=== PATIENT | female | born 1985 | race Caucasian/White ===

== ENCOUNTER 2016-11-26 17:27 | Emergency (ER) | payer OTHER, SELFPAY ==
--- NOTE | 2016-11-26 17:53 | EDM.PDOC ---
ED HPI GENERAL MEDICAL PROBLEM - General Chief Complaint: ENT Problem Stated Complaint: [facility] Time Seen by Provider: 11/26/16 17:33 Source of Information: Reports: Patient, EMS, Provider (Dr. Bradford) History Limitations: Reports: No Limitations - History of Present Illness INITIAL COMMENTS - FREE TEXT/NARRATIVE: 30-year-old female presents for evaluation and treatment of swelling to the right interface. Patient was at the dentist having a dental abscess drained. It is unclear at this point exactly what has occurred. patient developed significant pain and swelling to the right side of her face and into the neck. Patient is very anxious upon arrival to the ER. She is denying any pain. She is tearful. She denies any nausea, vomiting or any difficulty breathing. She is unsure how long she's had a dental abscess for. Reports on the right lower molar is involved. Dr. Wilcox has presented to the ED. Dr. Bradford reports that she was draining the abscess and it was drained, she was using some air into the area to ensure that it was evacuated. She believes that the air then traveled up into her face and down into her neck causing the significant pain. She spoke with an oral facial surgeon. He recommended Augmentin twice a day for 10 days. Recommend that the air will take about 3-5 days to subside. Location: Reports: Face (right sided) - Related Data Allergies Allergy/AdvReac Type Severity Reaction Status Date / Time No Known Allergies Allergy Verified 11/26/16 17:36 Home Meds: Home Meds Acetaminophen/HYDROcodone [[place] 325-5 MG] 1 tab PO Q6H PRN #12 tablet 11/26/16 [Rx] Amoxicillin/Potassium Clav [Augmentin 875-125 Tablet] 1 each PO BID #19 tablet 11/26/16 [Rx] Social & Family History - Tobacco Use Smoking Status *Q: Current Every Day Smoker Years of Tobacco use: 5 Packs/Tins Daily: 0.5 - Caffeine Use Caffeine Use: Reports: None - Recreational Drug Use Recreational Drug Use: No ED ROS ENT - Review of Systems Review Of Systems: See Below HEENT: Reports: Other (dental abscess, right lower molar; right sided facial swelling) Respiratory: Denies: Shortness of Breath GI/Abdominal: Denies: Nausea, Vomiting ED EXAM, ENT - Physical Exam Exam: See Below Exam Limited By: No Limitations General Appearance: Anxious Eye Exam: Bilateral Eye: PERRL Ears: Normal External Exam, Normal Canal, Hearing Grossly Normal, Normal TMs Nose: Normal Inspection Mouth/Throat: Normal Inspection, Dental Tenderness (patient would not open her mouth very wide due to anxiety and pain; no abscess appreciated). No: Dental Abcess Head: Facial Swelling (right inferior orbit, right cheeck, right mandible and right lateral neck) Neck: Supple, Other (right lateral neck swelling) Respiratory/Chest: No Respiratory Distress, Lungs Clear, Normal Breath Sounds Cardiovascular: Normal Peripheral Pulses, Regular Rate, Rhythm, No Murmur Neurological: Alert, Oriented Psychiatric: Anxious Skin: Warm, Dry Course - Vital Signs Last Recorded V/S: Last Vital Signs Temp 36.4 C 11/26/16 17:30 Pulse 80 11/26/16 20:27 Resp 16 11/26/16 20:27 BP 107/78 11/26/16 20:27 Pulse Ox 100 11/26/16 20:27 - Orders/Labs/Meds Orders: Active Orders 24 hr Category Date Time Status Soft Tissue Neck w Cont [CT] Stat Exams 11/26/16 17:38 Taken Labs: Laboratory Tests 11/26/16 11/26/16 11/26/16 Range/Units 17:55 17:55 17:55 WBC 15.69 H (3.98-10.04) K/mm3 RBC 4.83 (3.98-5.22) M/mm3 Hgb 15.4 (11.2-15.7) gm/L Hct 44.3 (34.1-44.9) % MCV 91.7 (79.4-94.8) fl MCH 31.9 (25.6-32.2) pg MCHC 34.8 (32.2-35.5) g/dl RDW Std Deviation 41.0 (36.4-46.3) fL Plt Count 261 (182-369) K/mm3 MPV 9.6 (9.4-12.3) fl Neutrophils % (Manual) 60 (40-60) % Band Neutrophils % 0 (0-10) % Lymphocytes % (Manual) 31 (20-40) % Atypical Lymphs % 0 % Monocytes % (Manual) 7 (2-10) % Eosinophils % (Manual) 2 (0.7-5.8) % Basophils % (Manual) 0 L (0.1-1.2) Platelet Estimate Adequate Plt Morphology Comment Normal RBC Morph Comment Normal Sodium 139 (136-145) mEq/L Potassium 3.7 (3.5-5.1) mEq/L Chloride 104 (98-107) mEq/L Carbon Dioxide 20 L (21-32) mEq/L Anion Gap 18.7 H (5-15) BUN 7 (7-18) mg/dL Creatinine 0.7 (0.55-1.02) mg/dL Est Cr Clr Drug Dosing TNP Estimated GFR (MDRD) > 60 (>60) mL/min BUN/Creatinine Ratio 10.0 L (14-18) Glucose 105 (74-106) mg/dL Calcium 9.0 (8.5-10.1) mg/dL Total Bilirubin 0.4 (0.2-1.0) mg/dL AST 12 L (15-37) U/L ALT 15 (14-59) U/L Alkaline Phosphatase 67 (46-116) U/L C-Reactive Protein 0.4 (<1.0) mg/dL Total Protein 7.8 (6.4-8.2) g/dl Albumin 4.0 (3.4-5.0) g/dl Globulin 3.8 gm/dL Albumin/Globulin Ratio 1.1 (1-2) HCG, Qual Negative (NEGATIVE) Meds: Medications Discontinued Medications Generic Name Dose Route Start Last Admin Trade Name Freq PRN Reason Stop Dose Admin Acetaminophen 650 mg 11/26/16 19:27 11/26/16 19:32 Tylenol PO 11/26/16 19:28 650 mg NOW ONE Administration Amoxicillin/Clavulanate Potassium 1 tab 11/26/16 19:57 11/26/16 20:03 Augmentin 875 Mg/125 Mg PO 11/26/16 19:58 1 tab ONETIME ONE Administration Iopamidol 100 ml 11/26/16 18:56 11/26/16 19:24 Isovue-300 (61%) IVPUSH 11/26/16 18:57 80 ml ONETIME ONE Administration Ondansetron HCl 4 mg 11/26/16 18:46 11/26/16 18:48 Zofran IVPUSH 11/26/16 18:47 4 mg ONETIME ONE Administration Ondansetron HCl Confirm 11/26/16 18:49 11/26/16 18:51 Zofran Administered 11/26/16 18:50 Not Given Dose 4 mg .ROUTE .STK-MED ONE Sodium Chloride 10 ml 11/26/16 18:56 11/26/16 19:24 Saline Flush FLUSH 10 ml ONETIME PRN Administration IV FLUSH - Radiology Interpretation Free Text/Narrative:: CT of the soft tissues of the neck impression per Vrad: 1. extensive soft tissue emphysema. No abscess. 2. Patchy paranasal sinus opacification, possibly sinusitis. CT Results Date: 11/26/16 - Re-Assessments/Exams Free Text/Narrative Re-Assessment/Exam: 11/26/16 19:20 Labs returned. WBC elevated at 15.69 with no bands, hgb is 15.4 and plts are 261 CRP is 0.4 sodium is 139, potassium 3.7 and chloride is104. Anion gap is 18.7. Glucose is 105. HCG is negative. I reviewed the lab results with the patient. Awaiting CT read. Offered medication for pain. Patient would like some tylenol for neck discomfort. 11/26/16 20:[address] results with the patient. Will start augmentin. Close follow-up. Medication given for pain. Discharge instructions as documented. Departure - Departure Time of Disposition: 20:04 Disposition: Home, Self-Care 01 Condition: fair Clinical Impression: Subcutaneous air - Discharge Information Prescriptions: Acetaminophen/HYDROcodone [[place] 325-5 MG] 1 tab PO Q6H PRN #12 tablet PRN Reason: Pain (Severe 7-10) Amoxicillin/Potassium Clav [Augmentin 875-125 Tablet] 1 each PO BID #19 tablet Referrals: PCP,None [Primary Care Provider] - Keiko Kerr PA [Physician Director [facility]] - Forms: ED Department Discharge, Return to Work/School Form Additional Instructions: Take the Augmentin as prescribed. One tab twice a day for 10 days. I recommend you take this with food. Augmentin can be hard on the stomach. Take yogurt or probiotic to reduce upset stomach side effects. Your first dose was given in the ER. Start your prescription tomorrow. [id number] Tylenol or Motrin as needed for pain. Do not take more than 4 g of Tylenol, from all sources, in one day. Do not take more than 3200 mg of ibuprofen it one day. hydrocodone-acetaminophen (norco) 5-325 1/2-1 tab every 4 -6 hours as needed for severe pain. Do not drive or operate machinery within 12 hours of taking the [place]. [place] can be habit forming, I recommended you take as few of these as needed to control your pain. may try icing the area if that provides additional symptom relief. Follow up with family medicine provider on Thursday or Thursday. Recommends Keiko Kerr or Dr. Rees. They are at the [facility]. Call [phone] schedules one of them. Please return to the ER if your symptoms change or worsen. - My Orders Last 24 Hours: My Active Orders 11/26/16 17:38 Soft Tissue Neck w Cont [CT] Stat - Assessment/Plan Last 24 Hours: My Active Orders 11/26/16 17:38 Soft Tissue Neck w Cont [CT] Stat
[2016-11-26] MEDS ORDERED: Ondansetron 4 MG/2 ML SDV IVPUSH ONE (18:46)
[2016-11-26] MEDS ORDERED: Ondansetron 4 MG/2 ML SDV ONE (18:49)
[2016-11-26] MEDS ORDERED: Iopamidol 612 MG/ML 100 ML Bottle IVPUSH ONE (18:56)
[2016-11-26] MEDS ORDERED: Sodium Chloride 0.9% 10 ML Syringe FLUSH PRN (18:56)
[2016-11-26] MEDS ORDERED: Acetaminophen 325 MG Tab PO ONE (19:27)
[2016-11-26] MEDS ORDERED: Amoxicillin/Clavulanate K 875-125 MG Tab PO ONE (19:57)
[2016-11-26 20:29] VITALS: BP 107/78
--- NOTE | 2016-11-27 09:24 | CT ---
CT face Technique: Multiple axial sections through the face were obtained. Intravenous contrast was utilized. Extensive subcutaneous air is identified within the prevertebral soft tissues and within both sides of the neck more prominent on the right side. Soft tissue air extends into the base of the neck and presumably into the chest. Etiology of this subcutaneous air is not seen on this exam. Moderate mucosal thickening seen within the ethmoid sinuses. Mild mucosal thickening seen within the maxillary sinuses. No fluid collections of abscess are seen. Absent left lobe of the thyroid gland is seen presumably from prior thyroidectomy or congenital. Visualized upper lungs appear clear. Parotid and submandibular salivary glands appear within normal limits. Bone window settings were obtained which show nothing acute. Impression: 1. Diffuse subcutaneous air is as described above, worse on the right side. Etiology for this finding is not seen. 2. 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 3. Mucosal thickening within the ethmoid and maxillary sinuses. 4. No additional abnormality is identified. Agree with preliminary report issued by [place] (preliminary report dictated on 12/06/16, 8:52 PM Central Time) Diagnostic code #3
== END 2016-11-26 20:20 | disposition home or self-care (01) ==
LOC: JD.ED 17:27
DX: Z48.814 Encounter for surgical aftercare following surgery on the teeth or oral cavity (principal); F17.210 Nicotine dependence, cigarettes, uncomplicated; Z98.818 Other dental procedure status
CPT/HCPCS: 36415; 70491; 80053; 84703; 85025; 86140; 96374; 99285; A9270; J2405; J7050; Q9967; 99284

== ENCOUNTER 2024-02-09 07:00 | Day surgery (SDC) | payer BC ==
[~2024-02-09 07:00] MED LIST: Sodium Chloride 0.9% 10 ML Syringe FLUSH PRN; Sodium Chloride 0.9% 10 ML Syringe FLUSH SCH
[2024-02-09] MEDS: Lactated Ringers 1,000 ML IV SCH (07:15)
[2024-02-09] MEDS ORDERED: fentaNYL 250 MCG/5 ML SDV ONE (07:19)
[2024-02-09] MEDS ORDERED: Rocuronium 50 MG/5 ML Vial ONE (07:19)
[2024-02-09] MEDS ORDERED: Lidocaine 1% 5 ML VIAL ONE (07:19)
[2024-02-09] MEDS ORDERED: Propofol 200 MG/20 ML SDV ONE (07:19)
[2024-02-09] MEDS ORDERED: Midazolam 1 MG/ML 2 ML SDV ONE (07:19)
[2024-02-09] MEDS ORDERED: Ondansetron 4 MG/2 ML SDV ONE (07:19)
[2024-02-09] MEDS ORDERED: Dexamethasone 4 MG/ML 5 ML MDV ONE (07:20)
[2024-02-09] MEDS ORDERED: ceFAZolin 2 GM Vial ONE (07:20)
[2024-02-09] MEDS ORDERED: Ondansetron 4 MG/2 ML SDV IVPUSH PRN (07:38)
[2024-02-09] MEDS ORDERED: fentaNYL 100 MCG/2 ML SDV IVPUSH PRN (07:38)
[2024-02-09] MEDS ORDERED: HYDROmorphone 0.5 MG/0.5 ML Syringe IVPUSH PRN (07:38)
[2024-02-09] MEDS ORDERED: dexmedeTOMIDine HCl 200 MCG/2 ML SDV ONE (07:49)
[2024-02-09] MEDS ORDERED: ePHEDrine 50 MG/ML SDV ONE (08:12)
[2024-02-09] MEDS ORDERED: HYDROmorphone 0.5 MG/0.5 ML Syringe ONE (08:17)
[2024-02-09] MEDS: Bupivacaine 0.5% 30 ML SDV ONE (08:25)
[2024-02-09] MEDS ORDERED: Lactated Ringers 1,000 ML ONE (08:40)
[2024-02-09] MEDS: Bupivacaine 0.25% 10 ML SDV ONE (09:00)
[2024-02-09] MEDS: EPINEPHrine 1 MG/ML SDV ONE (09:00)
[2024-02-09] MEDS ORDERED: Ketorolac 30 MG/ML SDV ONE (09:16)
[2024-02-09] MEDS ORDERED: Neostigmine Methylsulfate 10 MG/10 ML MDV ONE (09:19)
[2024-02-09] MEDS: Acetaminophen/oxyCODONE 325-5 MG Tab PO ONE (11:08)
== END 2024-02-09 11:10 | disposition home or self-care (01) ==
LOC: JD.SDS 07:00
PROVIDERS: ATTEND Obstetrics & Gynecology
DX: N80.03 Adenomyosis of the uterus (principal); K21.9 Gastro-esophageal reflux disease without esophagitis; F32.A Depression, unspecified; N92.0 Excessive and frequent menstruation with regular cycle; N94.6 Dysmenorrhea, unspecified; F17.210 Nicotine dependence, cigarettes, uncomplicated; Z79.899 Other long term (current) drug therapy
CPT/HCPCS: 36415; 58552; 86850; 86900; 86901; A9270; J0171; J0665; J0690; J1100; J1170; J1885; J2250; J2405; J2704; J2710; J3010; J3490; J7120; 00944